=== PATIENT | male | born 1990 | race Caucasian/White ===

== ENCOUNTER 2016-07-08 10:44 | Emergency (ER) | payer BC ==
[~2016-07-08] VITALS: Ht 182.9 cm; Wt 86.2 kg
[2016-07-08] MEDS ORDERED: KETOROLAC 30 MG/ML VIAL (J1885) IV ONE (12:15)
--- NOTE | 2016-07-08 12:31 | REP ---
PA and lateral chest: There are no comparison studies. The lung hurtado are clear. The cardiac size is normal The nicolás, mediastinum, and bony thorax are unremarkable. Impression: Negative PA and lateral chest. Signed by Casper Vanessa MD 07/08/2016 12:22 P
[2016-07-08 12:42] LABS: BASO % 0.6 % (0.0-1.0); EOS # 0.1 K/mm3 (0.0-0.50); EOS % 1.5 % (0.0-3.0); LARGE UNSTAINED CELL # 0.1 K/mm3 (0.0-0.4); LARGE UNSTAINED CELL % 1.2 % (0.0-4.0); LYMPH # 1.4 K/mm3 (1.5-6.5); LYMPH % 20.5 % (24.0-44.0); MEAN CORPUSCULAR HEMOGLOBIN 30.1 pg (27.0-33.0); MEAN CORPUSCULAR HGB CONC 33.9 g/dl (32.0-36.5); MEAN CORPUSCULAR VOLUME 88.8 fl (80.0-96.0); MONO # 0.5 K/mm3 (0.0-0.8); MONO % 6.6 % (0.0-5.0); NEUTROPHILS # 4.8 K/mm3 (1.8-7.7); NEUTROPHILS % 69.6 % (36.0-66.0); PLATELET COUNT, AUTOMATED 225 k/mm3 (150-450); RED CELL DISTRIBUTION WIDTH 12.2 % (11.5-14.5); WHITE BLOOD COUNT 6.9 K/mm3 (4.0-10.0)
[2016-07-08 12:49] LABS: ANION GAP 7 MEQ/L (8-16); BLOOD UREA NITROGEN 12 MG/DL (7-18); CALCIUM LEVEL 9.6 MG/DL (8.5-10.1); CARBON DIOXIDE LEVEL 29 MEQ/L (21-32); CHLORIDE LEVEL 105 MEQ/L (98-107); CREATININE FOR GFR 0.78 MG/DL (0.70-1.30); GLOMERULAR FILTRATION RATE > 60.0 (>60); GLUCOSE, FASTING 101 MG/DL (70-105); POTASSIUM SERUM 4.6 MEQ/L (3.5-5.1); SODIUM LEVEL 141 MEQ/L (136-145)
[2016-07-08 13:07] VITALS: BP 162/100
--- NOTE | 2016-07-09 10:10 | ECGEPIP ---
Stationary ECG Study [facility] - ED Test Date: 2016-07-08 Pat Name: HEMANTH MURO Department: Room: - Gender: M [employer]inator: linda : 1990 Requested By: Mitchel Garzon Order Number: [id number] Reading MD: Mitchel Toth Measurements Intervals [place] Rate: 90 P: 65 [place]: 179 QRS: 39 QRSD: 105 T: 14 QT: 345 QTc: 424 Interpretive Statements SINUS RHYTHM POSSIBLE LAE NSTTW ABNORMALITIES NO PRIORS Electronically Signed On 07-09-2016 10:10:06 EDT by Mitchel Toth
== END 2016-07-08 13:17 | disposition home or self-care (01) ==
LOC: M ED 13:07
DX: R07.89 Other chest pain (principal); F17.200 Nicotine dependence, unspecified, uncomplicated
CPT/HCPCS: 71020; 80048; 82550; 82553; 84443; 85025; 93005; 96374; 99283; J1885

== ENCOUNTER → 2018-05-17 | Outpatient (REF) | payer BC | LOC: M SFHCLERA 11:26 | PROVIDERS: ATTEND Physician Assistant | DX: R50.9 Fever, unspecified (principal) ==